=== PATIENT | male | born 1965 | race Caucasian/White ===

== ENCOUNTER 2017-05-31 19:20 | Inpatient (IN) | payer BC ==
[~2017-05-31] VITALS: Ht 175.3 cm; Wt 82.7 kg
[~2017-05-31 19:20] MED LIST: MORGIDOX100 MG PO; PROZAC40 MG PO; ULTRAM50 MG PO
[2017-05-31 19:47] LABS: HEMATOCRIT 38.9 % (38.0-50.0); HEMOGLOBIN 13.5 G/DL (12.5-16.6); MCHC 34.7 G/DL (30.0-36.0); MCV 86.4 FL (86-99); PLATELET COUNT 300 K/uL (156-360); RBC DIS.WIDTH-CV 12.6 % (11.8-14.6); RBC DIS.WIDTH-SD 39.6 % (39-53); WHITE BLOOD COUNT 10.1 K/uL (4.1-10.2)
[2017-05-31 19:57] LABS: CHLORIDE 101 mEq/L (99-109); POTASSIUM 3.7 mEq/L (3.7-5.4); SODIUM 140 mEq/L (136-147)
[2017-05-31 19:58] LABS: GLUCOSE 139 mg/dL (70-99)
[2017-05-31 20:02] LABS: CREATININE 0.9 mg/dL (0.6-1.3); GFR ESTIMATE (CALCULATED) > 59 mL/min/ (58.99-99999)
[2017-05-31 20:03] LABS: UREA NITROGEN (BUN) 8 mg/dL (9-23)
[2017-05-31 20:09] LABS: TROP-I INTERPRETATION NEGATIVE; TROPONIN-I 0.15 ng/mL (0.0-0.30)
[2017-05-31 21:43] LABS: INTER. NORMALIZED RATIO 1.2
[2017-05-31 21:45] LABS: PTT 26.4 SEC (25-37)
[2017-06-01] MEDS ORDERED: BENADRYL A12.5 MG/5 PO (00:31)
[2017-06-01] MEDS ORDERED: DILAUDID4 MG PO (00:31)
[2017-06-01] MEDS ORDERED: PAIN RELIE500 MG/15 PO (00:32)
[2017-06-01 02:11] LABS: TROP-I INTERPRETATION NEGATIVE; TROPONIN-I 0.13 ng/mL (0.0-0.30)
[2017-06-01 10:47] LABS: TROP-I INTERPRETATION NEGATIVE; TROPONIN-I 0.07 ng/mL (0.0-0.30)
[2017-06-01 15:36] VITALS: BP 132/86
[2017-06-01 20:00] VITALS: BP 123/80
[2017-06-02] VITALS: BP 132/84
[2017-06-02 03:37] VITALS: BP 119/77
[2017-06-02 05:58] LABS: HEMATOCRIT 36.3 % (38.0-50.0); HEMOGLOBIN 11.8 G/DL (12.5-16.6); MCH 28.4 PG (29.0-34.0); MCHC 32.5 G/DL (30.0-36.0); MCV 87.5 FL (86-99); PLATELET COUNT 274 K/uL (156-360); RBC DIS.WIDTH-CV 12.7 % (11.8-14.6); RBC DIS.WIDTH-SD 40.5 % (39-53); RED BLOOD COUNT 4.15 M/uL (4.00-5.50); WHITE BLOOD COUNT 7.7 K/uL (4.1-10.2)
[2017-06-02 08:32] VITALS: BP 122/75
[2017-06-02] MEDS ORDERED: ELIQUIS5 MG PO (11:12)
== END 2017-06-02 14:14 | disposition home or self-care (01) | DRG 176 ==
LOC: EME 19:20 → EDOF 06-01 02:04 → ENRESERV 06-01 02:06 → EDOF 06-01 02:15 → ENRESERV 06-01 12:28 → 5SOUTH 06-01 15:15
PROVIDERS: Hospitalist; Internal Medicine; Nurse Practitioner Family
DX: I26.99 Other pulmonary embolism without acute cor pulmonale (principal); R74.8 Abnormal levels of other serum enzymes; R13.10 Dysphagia, unspecified; Z98.1 Arthrodesis status; M79.89 Other specified soft tissue disorders; R00.0 Tachycardia, unspecified
CPT/HCPCS: 71046; 71275; 80048; 84484; 85027; 85379; 85610; 85730; 92610 GN; 93005; 93306; 93970; 99281; 99285; J7040; S0028